=== PATIENT | female | born 1970 | race Caucasian/White ===

== ENCOUNTER 2017-03-24 18:08 | Emergency (ER) | payer MEDICAID ==
[~2017-03-24] VITALS: Ht 175.3 cm; Wt 88.7 kg
[2017-03-24 21:53] VITALS: BP 128/65
== END 2017-03-24 21:53 | disposition home or self-care (01) ==
LOC: ED 18:08
DX: M17.11 Unilateral primary osteoarthritis, right knee (principal); M25.561 Pain in right knee

== ENCOUNTER 2019-11-18 07:45 | Emergency (ER) | payer MEDICAID ==
[~2019-11-18] VITALS: Ht 160 cm; Wt 86.2 kg
[2019-11-18 08:01] VITALS: BP 119/81; Ht 160 cm; Wt 86.2 kg
== END 2019-11-18 08:38 | disposition home or self-care (01) ==
LOC: ED 07:45
DX: H10.32 Unspecified acute conjunctivitis, left eye (principal)